=== PATIENT | female | born 1950 | race Caucasian/White ===

== ENCOUNTER 2017-04-19 10:41 | Emergency (ER) | payer OTHER ==
--- NOTE | 2017-04-19 10:58 | EDM.PDOC ---
ED HPI GENERAL MEDICAL PROBLEM - General Stated Complaint: [id number] SHARP AB PAIN LEFT SIDE Time Seen by Provider: 04/19/17 10:51 Source of Information: Reports: Patient History Limitations: Reports: No Limitations - History of Present Illness INITIAL COMMENTS - FREE TEXT/NARRATIVE: 67 yo female presents with sharp left side pain x 30 mins. States that she was getting ready to have a shower when pain hit her. Hx of kidney stones in past and feels pain is similar. C/o nausea with no vomiting. No other complaints. Onset: Today, Sudden Duration: Constant, Waxing/Waning Location: Reports: Abdomen Quality: Reports: Sharp, Throbbing Severity: Severe Improves with: Reports: None Worsens with: Reports: None Associated Symptoms: Reports: Nausea/Vomiting (nausea, no vomiting) Left Lower Abdomen Pain Score (Numeric/FACES): 9 - Related Data Allergies Allergy/AdvReac Type Severity Reaction Status Date / Time Penicillins Allergy Cannot Verified 04/19/17 11:00 Remember Home Meds: Home Meds Calcium Carbonate [Calcium] 1 tab PO DAILY 04/19/17 [History] Estrogen,Con/M-Progest Acet [Prempro 0.625-2.5 mg Tablet] 1 tab PO DAILY [History] Losartan [Cozaar] 25 mg PO DAILY 04/19/17 [History] Sertraline [Zoloft] 100 mg PO DAILY 04/19/17 [History] ED ROS GENERAL - Review of Systems Review Of Systems: ROS reveals no pertinent complaints other than HPI. ED EXAM, GI/ABD - Physical Exam Exam: See Below Exam Limited By: No Limitations General Appearance: Alert, WD/WN, No Apparent Distress Eyes: Bilateral: Normal Appearance, EOMI Respiratory/Chest: No Respiratory Distress, Lungs Clear, Normal Breath Sounds, No Accessory Muscle Use, Chest Non-Tender Cardiovascular: Normal Peripheral Pulses, Regular Rate, Rhythm, No Edema, No Gallop, No JVD, No Murmur, No Rub GI/Abdominal Exam: Normal Bowel Sounds, Soft, No Organomegaly, No Distention, No Abnormal Bruit, No Mass, Pelvis Stable, Tender (left flank) Back Exam: CVA Tenderness (L) Neurological: Alert, Oriented Skin Exam: Warm Course - Vital Signs Last Recorded V/S: Last Vital Signs Temp 99 F 04/19/17 11:01 Pulse 59 L 04/19/17 11:01 Resp 18 04/19/17 11:01 BP 165/92 H 04/19/17 11:01 Pulse Ox 98 04/19/17 11:01 - Orders/Labs/Meds Orders: Active Orders 24 hr Category Date Time Status Peripheral IV Care [RC] . DIRECTED Care 04/19/17 11:00 Active Acetaminophen/oxyCODONE [Percocet 325-5 MG] Med 04/19/17 12:38 Once 1 tab PO ONETIME ONE Sodium Chloride 0.9% [Saline Flush] Med 04/19/17 10:59 Active 10 ml FLUSH ASDIRECTED PRN Peripheral IV Insertion Adult [OM.PC] Stat Oth 04/19/17 10:59 Ordered Medication Orders Sodium Chloride (Saline Flush) 10 ml FLUSH ASDIRECTED PRN PRN Reason: Keep Vein Open Last Admin: 04/19/17 11:12 Dose: 10 ml Labs: Laboratory Tests 04/19/17 04/19/17 04/19/17 Range/Units 10:48 11:09 11:09 WBC 6.2 (5.0-10.0) 10^3/uL RBC 3.98 L (4.2-5.4) 10^6/uL Hgb 13.0 (12.0-16.0) g/dL Hct 38.7 (37.0-47.0) % MCV 97.2 (80-100) fL MCH 32.7 (27.0-34.0) pg MCHC 33.6 (33.0-35.0) g/dL Plt Count 214 (150-450) 10^3/uL Neut % (Auto) 62.9 (42.2-75.2) % Lymph % (Auto) 24.1 (20.5-50.1) % Carbon % (Auto) 9.4 H (2-8) % Eos % (Auto) 2.9 (1.0-3.0) % Baso % (Auto) 0.7 (0.0-1.0) % Sodium 140 (135-145) mmol/L Potassium 4.8 (3.6-5.0) mmol/L Chloride 99 L (101-111) mmol/L Carbon Dioxide 30.0 (21.0-31.0) mmol/L Anion Gap 15.8 BUN 21 H (7-18) mg/dL Creatinine 0.9 (0.6-1.3) mg/dL Est Cr Clr Drug Dosing 41.13 mL/min Estimated GFR (MDRD) > 60 Glucose 103 (74-105) mg/dL Calcium 9.9 (8.4-10.2) mg/dl Urine Color Yellow (YELLOW) Urine Appearance Slightly cloudy (CLEAR) Urine pH 7.0 (5.0-9.0) Ur Specific Gilman 1.015 (1.005-1.030) Urine Protein Negative (NEGATIVE) Urine Glucose (UA) Negative (NEGATIVE) Urine Ketones Negative (NEGATIVE) Urine Occult Blood Trace-lysed H (NEGATIVE) Urine Nitrite Negative (NEGATIVE) Urine Bilirubin Negative (NEGATIVE) Urine Urobilinogen 0.2 (0.2-1.0) mg/dL Ur Leukocyte Esterase Small H (NEGATIVE) Urine RBC 0-5 /HPF Urine WBC 10-20 H (0-5/HPF) /HPF Ur Epithelial Cells Many H /HPF Urine Bacteria Many H (0-FEW/HPF) /HPF Meds: Medications Generic Name Dose Route Start Last Admin Trade Name Freq PRN Reason Stop Dose Admin Sodium Chloride 10 ml 04/19/17 10:59 04/19/17 11:12 Saline Flush FLUSH 10 ml ASDIRECTED PRN Administration Keep Vein Open Discontinued Medications Generic Name Dose Route Start Last Admin Trade Name Freq PRN Reason Stop Dose Admin Sodium Chloride 1,000 mls @ 1,000 mls/hr 04/19/17 10:59 04/19/17 11:12 Normal Saline IV 04/19/17 11:58 1,000 mls/hr .BOLUS STA Administration Ketorolac Tromethamine 30 mg 04/19/17 11:00 04/19/17 11:12 Toradol IVPUSH 04/19/17 11:01 30 mg ONETIME ONE Administration Morphine Sulfate 2 mg 04/19/17 11:00 04/19/17 11:12 Morphine IVPUSH 04/19/17 11:01 2 mg ONETIME ONE Administration Morphine Sulfate 2 mg 04/19/17 11:58 04/19/17 12:10 Morphine IVPUSH 04/19/17 11:59 2 mg ONETIME ONE Administration Ondansetron HCl 4 mg 04/19/17 11:00 04/19/17 11:11 Zofran IV 04/19/17 11:01 4 mg ONETIME ONE Administration - Re-Assessments/Exams Free Text/Narrative Re-Assessment/Exam: 04/19/17 12:39 Pt's pain decreased, No definite stones per radiology, will treat as Renal colic due to dilatation of renal systems. Departure - Departure Time of Disposition: 12:40 Disposition: Home, Self-Care 01 Condition: Fair Clinical Impression: Kidney stones - Discharge Information Instructions: Renal Colic, Kidney Stones Additional Instructions: Take medication as needed for pain. No Drinking/driving with pain medication for at least 8 hours. Drink plenty of fluids to flush kidneys. Follow up with your PCP when you return or sooner if needed. - My Orders Last 24 Hours: My Active Orders 04/19/17 10:59 Sodium Chloride 0.9% [Saline Flush] 10 ml FLUSH ASDIRECTED PRN Peripheral IV Insertion Adult [OM.PC] Stat 04/19/17 11:00 Peripheral IV Care [RC] . DIRECTED 04/19/17 12:38 Acetaminophen/oxyCODONE [Percocet 325-5 MG] 1 tab PO ONETIME ONE - Assessment/Plan Last 24 Hours: My Active Orders 04/19/17 10:59 Sodium Chloride 0.9% [Saline Flush] 10 ml FLUSH ASDIRECTED PRN Peripheral IV Insertion Adult [OM.PC] Stat 04/19/17 11:00 Peripheral IV Care [RC] . DIRECTED 04/19/17 12:38 Acetaminophen/oxyCODONE [Percocet 325-5 MG] 1 tab PO ONETIME ONE
[2017-04-19] MEDS ORDERED: Sodium Chloride 0.9% 10 ML Syringe FLUSH PRN (10:59)
[2017-04-19] MEDS ORDERED: Sodium Chloride 0.9% 1,000 ML IV STA (10:59)
[2017-04-19] MEDS ORDERED: Ondansetron 4 MG/2 ML SDV IV ONE (11:00)
[2017-04-19] MEDS ORDERED: Ketorolac 30 MG/ML SDV IVPUSH ONE (11:00)
[2017-04-19] MEDS ORDERED: Morphine 2 MG/ML Syringe IVPUSH ONE ×2 (11:00→11:58)
[2017-04-19 11:02] VITALS: BP 165/92
[2017-04-19 11:35] LABS: CHLORIDE,CL 99 mmol/L (101-111); SODIUM,NA 140 mmol/L (135-145)
[2017-04-19] MEDS ORDERED: Acetaminophen/oxyCODONE 325-5 MG Tab PO ONE (12:38)
== END 2017-04-19 13:03 | disposition home or self-care (01) ==
LOC: DL.ED 10:41
DX: N20.0 Calculus of kidney (principal); Z88.0 Allergy status to penicillin; Z79.899 Other long term (current) drug therapy
CPT/HCPCS: 36415; 74176; 80048; 81001; 85025; 96361; 96374; 96375; 96376; 99284; A9270; J1885; J2270; J2405; J7050